=== PATIENT | female | born 1950 | race Caucasian/White ===

== ENCOUNTER 2016-07-09 10:47 | Outpatient (CLI) | payer OTHER ==
[~2016-07-09] VITALS: Ht 157.5 cm; Wt 102.3 kg
[~2016-07-09 10:47] MED LIST: AMIT10TA6 PO; BENA5TAB2 PO; FURO20TA3 PO; GLIP5TAB13 PO; METF500T4 PO
[2016-07-09 11:17] VITALS: BP 138/62; PULSE 91; RESP 18; Ht 157.5 cm; Wt 102.3 kg
--- NOTE | 2016-07-10 16:37 | PN ---
Date/Time of Note Date/Time of Note DATE: 07/10/16 TIME: 16:13 Assessment/Plan Assessment/Plan Assessment/Plan [facility] Progress Note Date of Service: 07/09/16 Today's Impression & Plan: Overall stable with unresectable HCC in the setting of Hep C cirrhosis. Patient can benefit from repeat TACE given slight increase in size of tumor and enhancement pattern. She also should have a liver transplant evaluation. Discussed at length with patient and family and answered all questions. Patient' s occasional abdominal pain is likely multifactorial, but likely contributed by the incisional hernia. Plan is to observe until liver transplant evaluation is done in case she is a candidate and the transplant center would like to address it. With above assessment, I've recommended the following for today: 1. Repeat transarterial chemoembolization to right lobe of the liver 2. Liver transplant evaluation 3. Liver-CT 2-3 months post TACE Thank you again for your great care of this very pleasant patient and wonderful family. If there are any questions, please feel free to call me at [phone]. TOTAL VISIT TIME: 20 minutes of which more than half was spent in [id number] discussion with the patient, possibly including family, as well as coordination of care between multiple physicians and providers. Disclaimer: Inadvertent spelling or grammatical errors are likely due to EHR/ dictation software use and do not reflect on the overall quality of patient care. Updated Clinical Summary: Very pleasant but unfortunate 65-year-old lady with comorbid issues including BMI of 37.8, diabetes mellitus type 2, hepatitis C related cirrhosis who unfortunately likely has hepatocellular carcinoma of segment 8 of her liver with possible multifocal disease with an area of question in segment 6 of her liver. Patient reportedly had an attempt at resection in [place], but the surgeons there believe that she was unresectable and that there was a significant amount of cirrhosis and portal hypertension. Her platelet count in the 150s indicates at least some degree of portal hypertension and her overall picture is concerning for a moderate level/child B type cirrhosis. The location of this tumor is also a problem since minimally invasive surgery would be more difficult to do in segment 8 region, although, it is still possible with specialized equipment such as ablative therapy such as the Habib. Multidisciplinary tumor board presentation concurred that the patient is not an acceptable candidate for major hepatic resection and agreed with the recommendation of TACE and liver transplant evaluation. S/p TACE to R lobe of liver late 2015/early 2016. Repeat liver CT 06/30/16 showed 5.5 cm mass segment 7 /8 of liver. Comorbidity/PMHx List: 1. Hepatitis C of unknown genotype. 2. Hepatitis C related cirrhosis. 3. Diabetes mellitus type 2. 4. BMI of 37.8. 5. Abdominal exploration for partial hepatectomy in [place], aborted 10/18/2015 due to portal HTN and cirrhosis. 6. S/p TACE to R lobe of liver late 2015/early 2016. Repeat liver CT 06/30/16 showed 5.5 cm mass segment 7/8 of liver. Subjective: No major events or complaints; no major abd pain, although occasional pain from incisional hernia site; no n/v/d; no sob or cp; + flatus; + BM and normal; + activity; gained weight Objective: Vitals: See below Exam: GENERAL: On exam, the patient was sitting in a chair and appeared to be comfortable and in no acute distress. BMI 41.2 ABDOMEN: Soft, nontender and nondistended. There are no peritoneal signs or guarding. Central non-obstructed incisional hernia relatively non-tender. SKIN: Skin appears to be pink and feels warm to touch. NEUROLOGIC: Patient is awake, alert, and follows commands appropriately. Exam/Review of Systems Vital Signs Vitals Vital Signs Date Time Temp Pulse Resp B/P Pulse Ox O2 Delivery O2 Flow Rate FiO2 07/09/16 11:17 98.0 91 18 138/62 99 Room Air PASTORA RAMIRES M.D. July 10, 2016 16:37
== END 2016-07-09 15:16 | disposition home or self-care (01) ==
LOC: HPC 10:47
PROVIDERS: ATTEND Transplant Surgery
DX: C22.0 Liver cell carcinoma (principal); B19.20 Unspecified viral hepatitis C without hepatic coma; K74.60 Unspecified cirrhosis of liver; E11.9 Type 2 diabetes mellitus without complications
CPT/HCPCS: G0463